=== PATIENT | male | born 1965 | race Hispanic/Latino ===

== ENCOUNTER 2023-01-31 14:47 | Emergency (ER) | payer BC, OTHER, SELFPAY | END 2023-01-31 15:28 | disposition home or self-care (01) | LOC: NAV ERS 14:47 | DX: M54.50 Low back pain, unspecified (principal); Z87.891 Personal history of nicotine dependence | CPT/HCPCS: 99283 ==

== ENCOUNTER 2023-07-14 01:15 | Emergency (ER) | payer SELFPAY ==
[2023-07-14] MEDS ORDERED: Morphine 4 MG/ML VIAL ONE ×2 (01:25→03:20)
[2023-07-14] MEDS ORDERED: Ondansetron PF 4 MG/2 ML Vial ONE (01:25)
[2023-07-14] MEDS ORDERED: Sodium Chloride 0.9% 1,000 ML ONE (01:26)
[2023-07-14 01:41] LABS: #Basophils 0.1 thou/uL (0.0-0.2); #Lymphocytes 0.4 thou/uL (1.20-3.40); #Monocytes 0.3 thou/uL (0.11-0.59); %Basophils 0.7 % (0.0-1.0); %Monocytes 2.9 % (0.0-10.0); %Neutrophils 92.4 % (42.0-75.0); Hematocrit 50.8 % (42.0-52.0); Hemoglobin 17.7 g/dL (14.0-18.0); Mean Corpuscular HGB CONC 34.9 g/dL (32.0-36.0); Mean Corpuscular Hemoglobin 34.9 pg (27.0-31.0); Mean Platelet Volume 7.4 fL (7.4-10.4); Platelet Count 155 10x3/uL (130-400); RBC Distribution Width 10.6 % (11.5-14.5); Red Blood Cell (RBC) Count 5.08 mill/uL (4.70-6.10); White Blood Cell (WBC) Count 10.8 10x3/uL (4.8-10.8)
[2023-07-14 01:59] LABS: Troponin I Less than 0.010 ng/mL (< 0.028)
[2023-07-14] MEDS ORDERED: fentaNYL 50 mcg/mL 1 mL Vial ONE ×2 (02:18→04:17)
[2023-07-14 02:41] LABS: ALT (SGPT) 396 U/L (8-55); AST (SGOT) 379 U/L (5-34); Alkaline Phosphatase 92 U/L (40-110); Anion Gap 17 mmol/L (10-20); BUN (Urea Nitrogen) 8 mg/dL (8.4-25.7); Bilirubin, Total 1.9 mg/dL (0.2-1.2); Calc. Creatinine Clearance 0 mL/min (70-130); Calcium 8.7 mg/dL (7.8-10.44); Carbon Dioxide 22 mmol/L (22-29); Chloride 102 mmol/L (98-107); Estimated GFR 102; Globulin 3.1 g/dL (2.4-3.5); Glucose 180 mg/dL (70-105); Potassium 3.7 mmol/L (3.5-5.1); Protein, Total 7.1 g/dL (6.0-8.3); Sodium 137 mmol/L (136-145)
[2023-07-14 02:58] LABS: Lipase 1610 U/L (8-78)
[2023-07-14] MEDS ORDERED: hydrALAZINE 20 MG/ML VIAL ONE (04:08)
[2023-07-14] MEDS ORDERED: Piperacillin/Tazobactam 4.5 GM VIAL ONE (04:17)
[2023-07-14] MEDS ORDERED: Iopamidol 370 76% 100 ML VIAL ONE (09:00)
== END 2023-07-14 06:44 | disposition short-term general hospital (02) ==
LOC: NAV ERS 01:15
DX: K85.90 Acute pancreatitis without necrosis or infection, unspecified (principal); I10 Essential (primary) hypertension; R79.89 Other specified abnormal findings of blood chemistry; Z87.891 Personal history of nicotine dependence
CPT/HCPCS: 71275; 74174; 80053; 83690; 84484; 85025; 93005; 94760; 96361; 96365; 96375; 96376; J0360; J2270; J2405; J2543; J3010; J7050; Q9967